=== PATIENT | female | born 1965 | race Caucasian/White ===

== ENCOUNTER 2020-06-08 07:30 | Emergency (ER) | payer BC ==
[~2020-06-08] VITALS: Ht 160 cm; Wt 72.7 kg
[2020-06-08 07:39] VITALS: BP 114/70
[2020-06-08] MEDS ORDERED: DEXA4TAB67 PO (07:54)
[2020-06-08] MEDS: dexamethasone 4mg tablet PO ONE (08:02)
== END 2020-06-08 08:33 | disposition home or self-care (01) ==
LOC: ER 07:31
DX: B34.9 Viral infection, unspecified (principal); J02.9 Acute pharyngitis, unspecified; R06.02 Shortness of breath; R07.89 Other chest pain; R43.8 Other disturbances of smell and taste; R50.9 Fever, unspecified; R05 Cough; Z88.2 Allergy status to sulfonamides; Z88.5 Allergy status to narcotic agent; Z88.8 Allergy status to other drugs, medicaments and biological substances; Z88.0 Allergy status to penicillin; Z79.899 Other long term (current) drug therapy
CPT/HCPCS: 99283

== ENCOUNTER 2020-06-16 06:53 | Inpatient (IN) | payer BC ==
[~2020-06-16] VITALS: Ht 160 cm; Wt 72.7 kg
[~2020-06-16 06:53] MED LIST: DEXA4TAB67 PO
[2020-06-16] MEDS ORDERED: acetaminophen 325mg tablet PO ONE (07:50)
[2020-06-16] MEDS ORDERED: normal saline 1000ml 1,000 ML IV ONE (07:50)
[2020-06-16] MEDS ORDERED: ketorolac trometh. 30mg/ml inj. IV ONE (07:50)
[2020-06-16 08:28] LABS: BASOPHILS % (AUTO) 0 % (0-1); EOSINOPHILS % (AUTO) 0.2 % (0-6); HEMATOCRIT 41.4 % (35.0-45.0); HEMOGLOBIN 13.9 g/dl (12.0-16.0); LYMPHOCYTES # (AUTO) 2.2 X10'3 (1.1-4.8); LYMPHOCYTES % (AUTO) 15.6 % (21-51); MEAN CORPUSCULAR HEMOGLOBIN 30.9 PG (27.0-31.0); MEAN CORPUSCULAR HGB CONC 33.5 g/dL (33.0-36.5); MEAN PLATELET VOLUME 8.8 FL (7.4-10.4); MONOCYTES # (AUTO) 0.8 X10'3 (0-0.9); MONOCYTES % (AUTO) 5.4 % (2-12); NEUTROPHILS # (AUTO) 10.9 X10'3 (1.8-7.7); NEUTROPHILS % (AUTO) 78.8 % (42-75); PLATELET COUNT 285 X10'3 (140-440); RED BLOOD COUNT 4.49 X10'6 (4.20-5.60); RED CELL DISTRIBUTION WIDTH 13.5 % (11.5-14.5); WHITE BLOOD COUNT 13.9 X10'3 (4.5-11.0)
[2020-06-16] MEDS ORDERED: dexamethasone sod phosphate 10mg/ml inj IV STA (08:35)
[2020-06-16 08:55] LABS: ALANINE AMINOTRANSFERASE 81 U/L (12-78); ALBUMIN 2.9 G/DL (3.4-5.0); ALBUMIN/GLOBULIN RATIO 0.8 (1.1-1.5); ALKALINE PHOSPHATASE 78 IU/L (46-116); ANION GAP 7 (8-16); ASPARTATE AMINO TRANSFERASE 37 U/L (10-37); BILIRUBIN,TOTAL 0.7 MG/DL (0.1-1.0); BLOOD UREA NITROGEN 23 MG/DL (7-18); BUN/CREATININE RATIO 30.7 (6.6-38.0); CALCIUM 8.3 MG/DL (8.5-10.1); CHLORIDE 101 MMOL/L (99-107); CREATININE 0.75 MG/DL (0.40-0.90); GLUCOSE 94 MG/DL (70-104); POTASSIUM 3.5 MMOL/L (3.5-5.1); SODIUM 136 MMOL/L (135-145); TOTAL CARBON DIOXIDE 28.2 MMOL/L (24-32); TOTAL PROTEIN 6.7 G/DL (6.4-8.2); eGFR 81 ML/MIN
[2020-06-16 09:08] LABS: D-DIMER 0.62 MG/L FEU (0-0.50)
[2020-06-16 09:09] LABS: C-REACTIVE PROTEIN 6.25 MG/DL (0.0-0.5); FERRITIN 389 NG/ML (8-252); LACTATE DEHYDROGENASE 186 U/L (81-234)
[2020-06-16] MEDS ORDERED: HYDROcodone/acetaminophen 10/325mg tab PO PRN (09:35)
[2020-06-16] MEDS ORDERED: mag hydrox/Alum hydrox/simeth 30ml oral suspension PO PRN (09:35)
[2020-06-16] MEDS ORDERED: acetaminophen 325mg tablet PO PRN ×2 (09:35)
[2020-06-16] MEDS ORDERED: ondansetron/PF 4mg/2ml inj IV PRN (09:35)
[2020-06-16] MEDS ORDERED: magnesium hydroxide 30ml (MOM) UD suspension PO PRN (09:35)
[2020-06-16 10:19] LABS: TROPONIN I < 0.04 NG/ML (0.0-0.05)
[2020-06-16] MEDS ORDERED: LEVA15HF6 IH (11:00)
[2020-06-16 12:15] VITALS: BP 98/56
--- NOTE | 2020-06-16 14:00 | NUR ---
Patient arrived to floor, VS done.
[2020-06-16] MEDS: HYDROcodone/acetaminophen 5mg/325mg tablet PO PRN (16:37)
--- NOTE | 2020-06-16 17:04 | NUR ---
PAGER ID: [phone] MESSAGE: [phone] would like to know if you want the blood cultures now or added to the am labs. Maria Isabel [id number]
[2020-06-16 18:00] VITALS: BP 91/47
--- NOTE | 2020-06-16 18:27 | NUR ---
Problems reprioritized. Patient report given, questions answered & plan of care reviewed with JOSEPHINE BRENNAN.
--- NOTE | 2020-06-16 18:50 | NUR ---
Page sent to Dr. Gandhi in regards to patient's low bp and low map 91/47 map 62. Awaiting orders
[2020-06-16] MEDS: dexamethasone inj 6 MG in normal saline 50ml IV soln 50 ML IV SCH (19:25)
[2020-06-16] MEDS ORDERED: dexamethasone inj 6 MG in normal saline 100ml IV soln 100 ML IV SCH (20:00)
[2020-06-16 20:10] VITALS: BP 84/48
--- NOTE | 2020-06-16 20:12 | NUR ---
Called out to Dr. Sylvester, advised patient's low bp and low map 91/47 map 62 recheck 84/48, rec'd order for 1x 250 bolus
[2020-06-16] MEDS ORDERED: normal saline 250ml IV soln 250 ML IV ONE (20:15)
[2020-06-16 21:20] VITALS: BP 91/52
[2020-06-16 22:00] VITALS: BP 91/49
--- NOTE | 2020-06-16 22:08 | NUR ---
Page sent to Dr. Sylvester advised that bp improved after bolus 91/52 map 65, however map dropped below 65 again with 22:00 vitals 91/49 map 63. No new orders at this time
[2020-06-17 02:00] VITALS: BP 101/60
[2020-06-17] MEDS: benzonatate 100mg capsule PO SCH ×4 (04:38→19:46)
[2020-06-17 06:00] VITALS: BP 95/58
[2020-06-17 07:31] LABS: BASOPHILS % (AUTO) 0.1 % (0-1); EOSINOPHILS % (AUTO) 0 % (0-6); HEMATOCRIT 39.2 % (35.0-45.0); HEMOGLOBIN 13.2 g/dl (12.0-16.0); LYMPHOCYTES # (AUTO) 0.6 X10'3 (1.1-4.8); LYMPHOCYTES % (AUTO) 7.8 % (21-51); MEAN CORPUSCULAR HGB CONC 33.6 g/dL (33.0-36.5); MEAN CORPUSCULAR VOLUME 92.1 FL (78-98); MEAN PLATELET VOLUME 8.4 FL (7.4-10.4); MONOCYTES # (AUTO) 0.3 X10'3 (0-0.9); MONOCYTES % (AUTO) 3.5 % (2-12); NEUTROPHILS # (AUTO) 7.4 X10'3 (1.8-7.7); NEUTROPHILS % (AUTO) 88.6 % (42-75); PLATELET COUNT 286 X10'3 (140-440); RED BLOOD COUNT 4.25 X10'6 (4.20-5.60); RED CELL DISTRIBUTION WIDTH 13.3 % (11.5-14.5); WHITE BLOOD COUNT 8.3 X10'3 (4.5-11.0)
[2020-06-17 07:57] LABS: ALBUMIN 2.5 G/DL (3.4-5.0); ANION GAP 7 (8-16); BLOOD UREA NITROGEN 20 MG/DL (7-18); BUN/CREATININE RATIO 35.7 (6.6-38.0); CALCIUM 8.5 MG/DL (8.5-10.1); CHLORIDE 103 MMOL/L (99-107); CREATININE 0.56 MG/DL (0.40-0.90); GLUCOSE 133 MG/DL (70-104); SODIUM 138 MMOL/L (135-145); eGFR > 90 ML/MIN
[2020-06-17] MEDS: enoxaparin 40mg/0.4ml syringe SUBCUT SCH (09:08)
[2020-06-17] MEDS: HYDROcodone/acetaminophen 5mg/325mg tablet PO PRN (09:09)
[2020-06-17] MEDS: dexamethasone inj 6 MG in normal saline 50ml IV soln 50 ML IV SCH ×2 (09:09→19:46)
[2020-06-17 10:00] VITALS: BP 90/55
--- NOTE | 2020-06-17 11:56 | NUR ---
aware of low BP, no fluids ordered. Addendum: 06/17/20 at 1157 by Maria Isabel Cabrera RN Amended: Links added.
[2020-06-17 14:00] VITALS: BP 98/52
[2020-06-17 16:41] LABS: D-DIMER 0.47 MG/L FEU (0-0.50)
[2020-06-17 18:00] VITALS: BP 93/53
--- NOTE | 2020-06-17 18:32 | NUR ---
Problems reprioritized. Patient report given, questions answered & plan of care reviewed with LATONIA BRENNAN.
[2020-06-17 22:00] VITALS: BP 100/54
--- NOTE | 2020-06-17 22:30 | NUR ---
Patient c/o of coughing episode that wouldn't stop after getting up to go to the bathroom, her oxygen saturation was 87-89% on 1.5 liters oxygen. So I increased her to 3 liters oxygen and it went up to 88-91%. She requested something to help with breathing so she could take a deep breath in. Orders given for albuterol inhaler and Robitussin without codeine after calling Dr. Sylvester.
[2020-06-17] MEDS: guaiFENesin 200 MG/10 ML oral syrup UD cup PO PRN (23:07)
[2020-06-18] MEDS: benzonatate 100mg capsule PO SCH ×4 (01:34→19:41)
[2020-06-18 02:00] VITALS: BP 91/45
[2020-06-18] MEDS: HYDROcodone/acetaminophen 5mg/325mg tablet PO PRN ×2 (04:44→23:48)
[2020-06-18 06:00] VITALS: BP 97/50
[2020-06-18 07:29] LABS: ALBUMIN 2.5 G/DL (3.4-5.0); ANION GAP 3 (8-16); BLOOD UREA NITROGEN 21 MG/DL (7-18); BUN/CREATININE RATIO 31.3 (6.6-38.0); C-REACTIVE PROTEIN 3.42 MG/DL (0.0-0.5); CALCIUM 8.5 MG/DL (8.5-10.1); CHLORIDE 103 MMOL/L (99-107); CREATININE 0.67 MG/DL (0.40-0.90); GLUCOSE 145 MG/DL (70-104); POTASSIUM 4.3 MMOL/L (3.5-5.1); SODIUM 136 MMOL/L (135-145); TOTAL CARBON DIOXIDE 29.7 MMOL/L (24-32); eGFR > 90 ML/MIN
[2020-06-18 07:34] LABS: BASOPHILS % (AUTO) 0.1 % (0-1); EOSINOPHILS % (AUTO) 0 % (0-6); HEMATOCRIT 38.1 % (35.0-45.0); HEMOGLOBIN 12.9 g/dl (12.0-16.0); LYMPHOCYTES # (AUTO) 0.6 X10'3 (1.1-4.8); LYMPHOCYTES % (AUTO) 7.4 % (21-51); MEAN CORPUSCULAR HEMOGLOBIN 30.8 PG (27.0-31.0); MEAN CORPUSCULAR HGB CONC 33.7 g/dL (33.0-36.5); MEAN CORPUSCULAR VOLUME 91.3 FL (78-98); MEAN PLATELET VOLUME 8.8 FL (7.4-10.4); MONOCYTES # (AUTO) 0.3 X10'3 (0-0.9); MONOCYTES % (AUTO) 4.1 % (2-12); NEUTROPHILS # (AUTO) 7.2 X10'3 (1.8-7.7); NEUTROPHILS % (AUTO) 88.4 % (42-75); PLATELET COUNT 303 X10'3 (140-440); RED BLOOD COUNT 4.17 X10'6 (4.20-5.60); RED CELL DISTRIBUTION WIDTH 13.3 % (11.5-14.5); WHITE BLOOD COUNT 8.2 X10'3 (4.5-11.0)
[2020-06-18] MEDS: enoxaparin 40mg/0.4ml syringe SUBCUT SCH (08:46)
[2020-06-18] MEDS: dexamethasone inj 6 MG in normal saline 50ml IV soln 50 ML IV SCH ×2 (08:47→19:41)
[2020-06-18] MEDS: guaiFENesin 200 MG/10 ML oral syrup UD cup PO PRN ×3 (09:20→23:30)
[2020-06-18] MEDS: ALBUTEROL INHALER 1 PUFF/90 MCG INHALER IH PRN ×3 (09:20→23:48)
[2020-06-18 10:00] VITALS: BP 100/59
[2020-06-18 15:00] VITALS: BP 109/63
[2020-06-18 18:00] VITALS: BP 101/58
--- NOTE | 2020-06-18 18:30 | NUR ---
Patient in room [facility]TH[facility] 4021. I have received report from MIKA ROTH and had the opportunity to ask questions and assume patient care.
[2020-06-18] MEDS: docusate sod 100mg capsule PO SCH (19:41)
[2020-06-18 22:00] VITALS: BP 96/54
[2020-06-19] MEDS: benzonatate 100mg capsule PO SCH ×3 (01:34→15:30)
[2020-06-19 02:00] VITALS: BP 84/46
[2020-06-19] MEDS: guaiFENesin 200 MG/10 ML oral syrup UD cup PO PRN (05:09)
[2020-06-19 06:00] VITALS: BP 94/48
--- NOTE | 2020-06-19 06:26 | NUR ---
Problems reprioritized. Patient report given, questions answered & plan of care reviewed with MIKA ROTH.
[2020-06-19 07:31] LABS: BASOPHILS % (AUTO) 0.4 % (0-1); EOSINOPHILS % (AUTO) 0 % (0-6); HEMATOCRIT 38.7 % (35.0-45.0); HEMOGLOBIN 13.3 g/dl (12.0-16.0); LYMPHOCYTES # (AUTO) 0.6 X10'3 (1.1-4.8); LYMPHOCYTES % (AUTO) 6.8 % (21-51); MEAN CORPUSCULAR HEMOGLOBIN 31.4 PG (27.0-31.0); MEAN CORPUSCULAR HGB CONC 34.3 g/dL (33.0-36.5); MEAN CORPUSCULAR VOLUME 91.7 FL (78-98); MEAN PLATELET VOLUME 8.8 FL (7.4-10.4); MONOCYTES # (AUTO) 0.5 X10'3 (0-0.9); MONOCYTES % (AUTO) 6.3 % (2-12); NEUTROPHILS # (AUTO) 7.5 X10'3 (1.8-7.7); NEUTROPHILS % (AUTO) 86.5 % (42-75); PLATELET COUNT 291 X10'3 (140-440); RED BLOOD COUNT 4.23 X10'6 (4.20-5.60); RED CELL DISTRIBUTION WIDTH 13.5 % (11.5-14.5); WHITE BLOOD COUNT 8.7 X10'3 (4.5-11.0)
[2020-06-19 07:43] LABS: D-DIMER 0.25 MG/L FEU (0-0.50)
[2020-06-19 07:51] LABS: ALANINE AMINOTRANSFERASE 58 U/L (12-78); ALBUMIN 2.7 G/DL (3.4-5.0); ALBUMIN/GLOBULIN RATIO 0.7 (1.1-1.5); ALKALINE PHOSPHATASE 64 IU/L (46-116); ANION GAP 6 (8-16); ASPARTATE AMINO TRANSFERASE 17 U/L (10-37); BILIRUBIN,TOTAL 0.6 MG/DL (0.1-1.0); BLOOD UREA NITROGEN 21 MG/DL (7-18); C-REACTIVE PROTEIN 1.79 MG/DL (0.0-0.5); CALCIUM 8.4 MG/DL (8.5-10.1); CHLORIDE 101 MMOL/L (99-107); GLUCOSE 129 MG/DL (70-104); SODIUM 135 MMOL/L (135-145); TOTAL CARBON DIOXIDE 28.5 MMOL/L (24-32); TOTAL PROTEIN 6.4 G/DL (6.4-8.2); eGFR > 90 ML/MIN
[2020-06-19 10:00] VITALS: BP 90/57
[2020-06-19] MEDS: dexamethasone inj 6 MG in normal saline 50ml IV soln 50 ML IV SCH (10:00)
[2020-06-19] MEDS: enoxaparin 40mg/0.4ml syringe SUBCUT SCH (10:00)
[2020-06-19] MEDS: docusate sod 100mg capsule PO SCH (10:00)
--- NOTE | 2020-06-19 10:21 | NUR ---
O2 Sat at rest on room air:_94__% If below 89%: Recovery O2 Sat at rest on ___LPM:___%:___% via (mask/nasal cannula, etc..) No further documentation is necessary. If O2 Sat did not drop below 89% on room air,ambulate patient on room air. O2 Sat while ambulating on room air:_86__% Recovery O2 Sat while ambulating on _90__LPM:__2_% No further documentation is necessary. If patient does not drop below 89% while ambulating, he/she does not qualify for home O2.
[2020-06-19] MEDS: ALBUTEROL INHALER 1 PUFF/90 MCG INHALER IH PRN (10:24)
[2020-06-19] MEDS ORDERED: BENZ-16 PO (13:22)
[2020-06-19] MEDS ORDERED: DEC4T PO ×2 (13:22→14:48)
[2020-06-19] MEDS ORDERED: ENOX40DI11 SUBCUT (13:22)
--- NOTE | 2020-06-19 13:28 | NUR ---
PAGER ID: [phone] MESSAGE: [phone] Order PT? [id number] IRA
[2020-06-19 14:00] VITALS: BP 111/60
--- NOTE | 2020-06-20 11:55 | NUR ---
CASE MANAGEMENT DISCHARGE FOLLOW UP: Spoke with pt via telephone, she states that she is feeling "not good", states SOB with activity, Gold to come out to mange O2, states wearing 2LPM and satting low 90s, desats to high 80s with activity. Pt states that she does have someone who can check in on her/help her out. Pt states will come to hospital if unable to catch breath or in event of O2 desaturation without recovery, or if feeling distressed. Pt states taking medications per MD order, wants to know if she can take prescribed phenergan from before admission for cough, advised pt to speak with pharmacist as there are no notes by inpatient MD regarding this medication, pt verbalizes understanding. Pt states taking generic Robitussin as well as tessalon perles with little relief for cough. States that albuterol tx is helping a little, but not enough. Pt verbalizes compliance with MD discharge instructions. Pt verbalizes understanding of the importance in making/keeping follow-up appointments, however states that [facility] ([facility]) states that they have not received a referral for pt, will follow up. Pt states no further questions/concerns at this time. 1205 Attempt to contact [facility], office staff at lunch, will call back when they return. Addendum: 06/20/20 at 1504 by Lissette Carrillo RN 1300 Received message from pt requesting humidifier for O2 condenser. T/c to Asif, states need signed order indicating pt need, this needs to come from PCP. Pt does not have PCP. 1306 Contacted [facility], they state that they have not received referral. Stated referral had been sent to Miriam by Liset ROSE, fitness club manager unable to get a hold of Miriam, states will send email. 1359 T/c to pt, no answer, left message stating [facility], will try again, if she has any questions please call. 1442 T/c to [facility], spoke with Miriam, states needs new patient packet before can set up appointment with pt. Will notify patient. 1453 T/c to pt, no answer, left message stating that new pt packet needs to be completed and returned before scheduling appt, advised that if pt does not currently have packet that she needs to call [facility] to request that they mail her a packet or have someone machine operator hop picker a packet for her to fill out. Also advised that she will need a request from her PCP once care is established for the humidifier that she has requested. Advised that if pt is feeling that she cannot catch her breathing, cannot maintain O2 saturation, or is feeling distressed to please return to the ED immediately. Left phone number for call back.
== END 2020-06-19 16:40 | disposition home or self-care (01) | DRG 177 ==
LOC: ER 06:54 → ED HOLD 09:34 → ORTHO 4S 12:06
PROVIDERS: ADMIT Internal Medicine; ATTEND Internal Medicine
DX: U07.1 COVID-19 (principal); J12.82 Pneumonia due to coronavirus disease 2019; J96.01 Acute respiratory failure with hypoxia; Z90.710 Acquired absence of both cervix and uterus; Z88.0 Allergy status to penicillin; Z88.2 Allergy status to sulfonamides; Z88.8 Allergy status to other drugs, medicaments and biological substances; Z83.3 Family history of diabetes mellitus
CPT/HCPCS: 36415; 71045; 80048; 80053; 82728; 83605; 83615; 83880; 84145; 84484; 85025; 85379; 85384; 86140; 87040; 87081; 93005; 96374; 99285; G0378; J1100; J1650; J1885; J7030; J7050

== ENCOUNTER → 2021-01-18 | Outpatient (CLI) | payer MEDICAID ==
[~2021-01-18] MED LIST changes: +BENZ-16 PO; -DEXA4TAB67 PO; +ENOX40DI11 SUBCUT; +LEVA15HF6 IH
== END | disposition home or self-care (01) ==
LOC: RAD 14:48
PROVIDERS: ATTEND Family Medicine
DX: B94.8 Sequelae of other specified infectious and parasitic diseases (principal)
CPT/HCPCS: 71046

== ENCOUNTER 2021-11-02 09:59 | Outpatient (CLI) | payer MEDICAID ==
[2021-11-02 12:24] LABS: RHEUM FACTOR QUAL REFLEX TITER NEGATIVE (Neg)
[2021-11-02 12:53] LABS: C-REACTIVE PROTEIN 0.19 MG/DL (0.0-0.5); CHOL/HDL RATIO 3.4 (0.00-4.99); CHOLESTEROL 224 MG/DL (0-200); HDL CHOLESTEROL 66 MG/DL (35-60); LDL CHOLESTEROL 128 MG/DL (50-100); TRIGLYCERIDES 186 MG/DL (20-135)
[2021-11-02] MEDS ORDERED: PANT40TA54 PO (13:24)
[2021-11-02] MEDS ORDERED: CHOL20004 PO (13:24)
[2021-11-02] MEDS ORDERED: KETO15CR2 TOP (13:24)
[2021-11-02] MEDS ORDERED: ACET-812 PO (13:24)
[2021-11-04 10:43] LABS: HBSAG SCREEN Negative (Negative); HEP A AB, IGM Negative (Negative)
== END 2021-11-02 23:59 | disposition home or self-care (01) ==
LOC: LAB 09:59
PROVIDERS: ATTEND Family Medicine
DX: Z13.820 Encounter for screening for osteoporosis (principal); R19.7 Diarrhea, unspecified; R76.8 Other specified abnormal immunological findings in serum; R79.89 Other specified abnormal findings of blood chemistry; R53.82 Chronic fatigue, unspecified; M25.50 Pain in unspecified joint; K21.9 Gastro-esophageal reflux disease without esophagitis; R09.02 Hypoxemia; K76.0 Fatty (change of) liver, not elsewhere classified; K80.20 Calculus of gallbladder without cholecystitis without obstruction; B94.8 Sequelae of other specified infectious and parasitic diseases; Z87.442 Personal history of urinary calculi
CPT/HCPCS: 36415; 80061; 80074; 82306; 82607; 82746; 84439; 84443; 85651; 86038; 86140; 86430

== ENCOUNTER 2021-11-07 08:11 | Day surgery (SDC) | payer MEDICAID ==
[2021-11-02 11:31] LABS: BASOPHILS % (AUTO) 0.8 % (0-1); EOSINOPHILS # (AUTO) 0.1 X10'3 (0-0.9); EOSINOPHILS % (AUTO) 2.2 % (0-6); LYMPHOCYTES # (AUTO) 2.1 X10'3 (1.1-4.8); LYMPHOCYTES % (AUTO) 33.6 % (21-51); MEAN CORPUSCULAR HEMOGLOBIN 29.9 PG (27.0-31.0); MEAN CORPUSCULAR HGB CONC 33.8 g/dL (33.0-36.5); MEAN CORPUSCULAR VOLUME 88.7 FL (78-98); MEAN PLATELET VOLUME 9.3 FL (7.4-10.4); MONOCYTES # (AUTO) 0.4 X10'3 (0-0.9); MONOCYTES % (AUTO) 7.2 % (2-12); NEUTROPHILS # (AUTO) 3.4 X10'3 (1.8-7.7); NEUTROPHILS % (AUTO) 56.2 % (42-75); PRE OP HEMATOCRIT 39.7 % (35.0-45.0); PRE OP HEMOGLOBIN 13.4 g/dL (12.0-16.0); PRE OP PLATELET COUNT 239 X10'3 (140-440); RED BLOOD COUNT 4.48 X10'6 (4.20-5.60); RED CELL DISTRIBUTION WIDTH 13.6 % (11.5-14.5)
[2021-11-02 11:32] LABS: CLARITY,URINE CLEAR (Clear); COLOR,URINE YELLOW (Yellow); GLUCOSE, URINE NEGATIVE (Neg); KETONES,URINE NEGATIVE (Neg); LEUKOCYTE ESTERASE ,URINE NEGATIVE (Neg); NITRITES, URINE NEGATIVE (Neg); OCCULT BLOOD,URINE TRACE-INTACT (Neg); PROTEIN,URINE NEGATIVE (Neg); UROBILINOGEN,URINE 0.2 E.U/dL (0.2-1.0)
[2021-11-02 11:36] LABS: UA COLLECTION TYPE CLN CATCH MIDSTREAM
[2021-11-02 11:42] LABS: MUCUS STRANDS FEW /LPF (Neg); SQUAMOUS EPITHELIAL CELL,UR FEW /LPF (FEW)
[2021-11-02 11:44] LABS: BACTERIA,URINE NONE SEEN /HPF (Neg); RBC,URINE 0-2 /HPF (0-2); WBC,URINE 0-4 /HPF (0-4)
[2021-11-02 11:49] LABS: ALBUMIN 3.9 G/DL (3.4-5.0); ALBUMIN/GLOBULIN RATIO 1.1 (1.1-1.5); ALKALINE PHOSPHATASE 94 IU/L (46-116); BLOOD UREA NITROGEN 17 MG/DL (7-18); CALCIUM 9.2 MG/DL (8.5-10.1); CHLORIDE 104 MMOL/L (99-107); CREATININE 0.74 MG/DL (0.40-0.90); PRE OP ALT 33 U/L (30-65); PRE OP ANION GAP 4 (8-16); PRE OP AST 23 U/L (10-37); PRE OP BILIRUB, TOTAL 0.7 MG/DL (0.0-1.0); PRE OP GLUCOSE 97 MG/DL (70-104); PRE OP POTASSIUM 3.5 MMOL/L (3.4-5.1); PRE OP SODIUM 138 MMOL/L (135-145); TOTAL CARBON DIOXIDE 29.8 MMOL/L (24-32); TOTAL PROTEIN 7.5 G/DL (6.4-8.2); eGFR 81 ML/MIN
[~2021-11-07] VITALS: Ht 160 cm; Wt 70.9 kg
[2021-11-07] VITALS (25 sets, daily range): BP systolic 102–129; BP diastolic 61–81
[~2021-11-07 08:11] MED LIST changes: +ACET-812 PO; -BENZ-16 PO; +CHOL20004 PO; -ENOX40DI11 SUBCUT; +KETO15CR2 TOP; +PANT40TA54 PO; +clindamycin-Cleocin 900mg/D5W 50 ML IV ONE; +famotidine 20mg tablet PO ONE; +ringers solution, lacted 1,000 ML IV SCH
--- NOTE | 2021-11-07 08:30 | NUR ---
PATIENT PREPARED FOR SURGERY, IV STARTED IN RIGHT HAND WITHOUT DIFFICULTY. PT DENIES HAVING ANY QUESTIONS. SEEN BY SURGEON, OR CIRCULATING ROOM NURSE AND ANESTHESIOLOGIST.
[2021-11-07] MEDS ORDERED: aprepitant 40mg capsule PO ONE ×2 (09:39→10:35)
[2021-11-07] MEDS ORDERED: BUPIVAcaine/PF 2.5mg/ml (0.25%) 10ml vial ONE ×2 (09:58→10:00)
[2021-11-07] MEDS ORDERED: sevoflurane 250ml liquid IH ONE (10:06)
[2021-11-07] MEDS ORDERED: fentaNYL /PF 50mcg/ml 5ml ampule ONE (10:14)
[2021-11-07] MEDS ORDERED: midazolam 1 mg/ML 2ml injection ONE (10:14)
[2021-11-07] MEDS ORDERED: dexamethasone sod phosphate 4mg/ml inj. ONE (10:30)
[2021-11-07] MEDS ORDERED: LIDOcaine 2% (20mg/ml) 5ml vial ONE (10:30)
[2021-11-07] MEDS ORDERED: propofol inj 20 ML IV ONE (10:30)
[2021-11-07] MEDS ORDERED: rocuronium 10mg/ml inj IV ONE (10:31)
[2021-11-07] MEDS ORDERED: ondansetron/PF 4mg/2ml inj ONE (10:31)
[2021-11-07] MEDS ORDERED: ePHEDrine 50MG/ML INJ. ONE (10:58)
[2021-11-07] MEDS ORDERED: neostigmine methylsulfate 1 MG/ML 10ml vial ONE (10:59)
[2021-11-07] MEDS ORDERED: glycopyrrolate 0.2mg/ml inj ONE (10:59)
[2021-11-07] MEDS ORDERED: acetaminophen 1,000mg/100ml IV 100 ML IV PRN (11:05)
[2021-11-07] MEDS ORDERED: ondansetron/PF 4mg/2ml inj IV PRN (11:05)
[2021-11-07] MEDS ORDERED: proCHLORperazine 10 MG/2 ml inj IV PRN (11:05)
[2021-11-07] MEDS ORDERED: fentaNYL/PF 50MCG/1 ML 2ML syringe IV PRN ×2 (11:05)
[2021-11-07] MEDS ORDERED: ketorolac trometh. 30mg/ml inj. IV ONE (11:05)
[2021-11-07] MEDS ORDERED: ringers solution, lacted 1,000 ML IV SCH (11:05)
[2021-11-07] MEDS ORDERED: HYDROmorphone/PF 0.2 MG/ML SYRINGE IV PRN ×2 (11:05)
--- NOTE | 2021-11-07 11:11 | NUR ---
Received from OR via [facility]ON , accompanied by Anesthesiologist JAMES and report given by Anesthesiolgist. PATIENT WITH 20G PIV IN RIGHT UE RUNNING LR AT 100. PATIENT WITH 10L MASK ON WITH 100% SATURATIONS. 3 ABDOMINAL LAP SITES PRESENT. NO DRAINAGE. Addendum: 11/07/21 at 1122 by César Isaac RN, RN Amended: Links added.
--- NOTE | 2021-11-07 15:11 | NUR ---
ALL DC CRITERIA HAS BEEN MET FROM TRANSFER HOME. VSS, DENIES PAIN. PATIENT TAKEN HOME BY SISTER FOLLOWING REMOVAL OF IV WITHOUT COMPLICATIONS. ALL DC INSTRUCTIONS COVERED WITH PATIENT AND ALL QUESTIONS ANSWERED. PATIENT MEDS VERIFIED AT HER PHARMACY FOR ZOFRAN, COLACE AND PAIN MEDS. Addendum: 11/07/21 at 1532 by César Isaac RN, RN Amended: Links added.
== END 2021-11-07 15:11 | disposition home or self-care (01) ==
LOC: PAS 08:11
PROVIDERS: ATTEND Surgery
DX: K80.10 Calculus of gallbladder with chronic cholecystitis without obstruction (principal); G43.909 Migraine, unspecified, not intractable, without status migrainosus; G89.29 Other chronic pain; K21.9 Gastro-esophageal reflux disease without esophagitis; Z87.442 Personal history of urinary calculi; Z98.51 Tubal ligation status; Z90.710 Acquired absence of both cervix and uterus; Z98.890 Other specified postprocedural states; Z88.0 Allergy status to penicillin; Z88.5 Allergy status to narcotic agent; Z88.8 Allergy status to other drugs, medicaments and biological substances; Z79.899 Other long term (current) drug therapy; Z80.1 Family history of malignant neoplasm of trachea, bronchus and lung
CPT/HCPCS: 36415; 47562; 71045; 80053; 81001; 82948; 85025; 93005; J1100; J1170; J1885; J2250; J2405; J2704; J2710; J3010; J3490; J7030; J7120; J8501; Z7506; Z7508; Z7512; A4215; A4618; A7000